=== PATIENT | female | born 1985 | race Caucasian/White ===

== ENCOUNTER 2021-07-10 19:54 | Emergency (ER) | payer SELFPAY ==
[~2021-07-10] VITALS: Ht 172.7 cm; Wt 69.9 kg
[2021-07-10 20:01] VITALS: BP 147/95
== END 2021-07-10 21:40 | disposition left against medical advice (07) ==
LOC: MED 19:54
DX: F23 Brief psychotic disorder (principal); R41.82 Altered mental status, unspecified; R44.0 Auditory hallucinations; R44.1 Visual hallucinations; Z59.00 Homelessness unspecified
CPT/HCPCS: 93005; 99283